=== PATIENT | female | born 2000 | race Asian ===

== ENCOUNTER 2021-06-18 21:50 | Emergency (ER) | payer BC ==
[~2021-06-18] VITALS: Ht 162.5 cm; Wt 72.5 kg
--- NOTE | 2021-06-18 22:13 | ED General ---
General Chief Complaint: Abdominal/GI Problems Stated Complaint: THROWING UP BLOOD Source of Information: Patient Exam Limitations: No Limitations History of Present Illness Date Seen by Provider: Jun 18, 2021 Time Seen by Provider: 21:57 Initial Comments 20-year-old female with no significant past medical history coming in after she coughed up blood. Occurred earlier today around 4 PM and she presented to an urgent care. Reportedly had normal labs and a chest x-ray. Was told if this happen again she should come to the ER. She said prior to the incident she was eating something and pretzels, and she was worried one of them could have got stuck in her esophagus, but she says it did not really hurt. She had another episode around 9:30 PM tonight so that is why she presented to the ER. This is never happened before. Denies any vomiti ng, diarrhea, bloody stools, chest pain, current shortness of breath, weakness, numbness, abdominal pain, or any other concerns. LMP was 1 week ago. She does take control. Denies any prior history of DVT or PE, recent surgery, lower leg pain or swelling. She had normal colored stool today without any blood in it. She is never had any GI bleed issues before. Allergies and Home Medications Allergies Coded Allergies: No Known Drug Allergies (Unverified , 06/18/21) Patient Home Medication List Home Medication List Reviewed: Yes Pantoprazole Sodium (Protonix) 20 Mg Tablet.dr, 20 MG PO DAILY Prescribed by: HERIBERTO IGLESIAS on 06/18/21 1075 Review of Systems Review of Systems Constitutional: No chills EENTM: No blurred vision Respiratory: No cough, No short of breath Cardiovascular: No chest pain Gastrointestinal: No abdominal pain Genitourinary: no symptoms reported Musculoskeletal: no symptoms reported Skin: no symptoms reported Psychiatric/Neurological: No Symptoms Reported Hematologic/Lymphatic: No Symptoms Reported Immunological/Allergic: no symptoms reported All Other Systems Reviewed Negative Unless Noted: Yes Past Ngfddlm-Knufdc-Yofhxz Hx Patient Social History Tobacco Use?: No Substance use?: No Alcohol Use?: No Past Medical History Surgeries: No Physical Exam Vital Signs Vital Signs - First Documented 06/18/21 22:05 Temp 36.7 Pulse 73 Resp 16 B/P (MAP) 130/85 (100) Pulse Ox 98 Capillary Refill : Height, Weight, BMI Height: '" Weight: lbs. oz. kg; BMI Method: General Appearance: No Apparent Distress, WD/WN Eyes: Bilateral Eye Normal Inspection HEENT: PERRL/EOMI, Normal ENT Inspection, Pharynx Normal Neck: Full Range of Motion, Normal Inspection, Non Tender, Supple Respiratory: Chest Non Tender, Lungs Clear, Normal Breath Sounds, No Accessory Muscle Use, No Respiratory Distress Cardiovascular: Regular Rate, Rhythm, No Edema, Normal Peripheral Pulses Gastrointestinal: Normal Bowel Sounds, Non Tender, Soft; No Distended, No Guarding Back: Normal Inspection, No CVA Tenderness, No Vertebral Tenderness Extremity: Normal Capillary Refill, Normal Inspection, Normal Range of Motion, Non Tender, No Calf Tenderness, No Pedal Edema Neurologic/Psychiatric: Alert, No Motor/Sensory Deficits, Normal Mood/Affect Skin: Normal Color, Warm/Dry Lymphatic: No Adenopathy Progress/Results/Core Measures Suspected Sepsis SIRS Temperature: Pulse: Respiratory Rate: Laboratory Tests 06/18/21 22:20: White Blood Count 5.8 Blood Pressure / Mean: Laboratory Tests 06/18/21 22:20: Creatinine 0.77, INR Comment 1.0, Platelet Count 271, Total Bilirubin 0.4 Results/Orders Lab Results Laboratory Tests Test 06/18/21 22:20 Range/Units White Blood Count 5.8 4.3-11.0 10^3/uL Red Blood Count 4.76 3.80-5.11 10^6/uL Hemoglobin 12.7 11.5-16.0 g/dL Hematocrit 39 35-52 % Mean Corpuscular Volume 82 80-99 fL Mean Corpuscular Hemoglobin 27 25-34 pg Mean Corpuscular Hemoglobin Concent 33 32-36 g/dL Red Cell Distribution Width 13.6 10.0-14.5 % Platelet Count 271 130-400 10^3/uL Mean Platelet Volume 12.4 H 9.0-12.2 fL Immature Granulocyte % (Auto) 0 % Neutrophils (%) (Auto) 48 42-75 % Lymphocytes (%) (Auto) 42 12-44 % Monocytes (%) (Auto) 7 0-12 % Eosinophils (%) (Auto) 2 0-10 % Basophils (%) (Auto) 1 0-10 % Neutrophils # (Auto) 2.8 1.8-7.8 10^3/uL Lymphocytes # (Auto) 2.4 1.0-4.0 10^3/uL Monocytes # (Auto) 0.4 0.0-1.0 10^3/uL Eosinophils # (Auto) 0.1 0.0-0.3 10^3/uL Basophils # (Auto) 0.0 0.0-0.1 10^3/uL Immature Granulocyte # (Auto) 0.0 0.0-0.1 10^3/uL Prothrombin Time 13.2 12.2-14.7 SEC INR Comment 1.0 0.8-1.4 Activated Partial Thromboplast Time 31 24-35 SEC D-Dimer < 0.27 0.00-0.49 UG/ML Sodium Level 140 135-145 MMOL/L Potassium Level 3.5 L 3.6-5.0 MMOL/L Chloride Level 107 98-107 MMOL/L Carbon Dioxide Level 22 21-32 MMOL/L Anion Gap 11 5-14 MMOL/L Blood Urea Nitrogen 14 7-18 MG/DL Creatinine 0.77 0.60-1.30 MG/DL Estimat Glomerular Filtration Rate 112 BUN/Creatinine Ratio 18 Glucose Level 117 H 70-105 MG/DL Calcium Level 9.3 8.5-10.1 MG/DL Corrected Calcium 9.0 8.5-10.1 MG/DL Total Bilirubin 0.4 0.1-1.0 MG/DL Aspartate Amino Transf (AST/SGOT) 17 5-34 U/L Alanine Aminotransferase (ALT/SGPT) 15 0-55 U/L Alkaline Phosphatase 67 40-136 U/L Total Protein 7.8 6.4-8.2 GM/DL Albumin 4.4 3.2-4.5 GM/DL My Orders Orders - HERIBERTO IGLESIAS MD Cbc With Automated Diff (06/18/21 22:10) Comprehensive Metabolic Panel (06/18/21 22:10) Fibrin Degradation Products (06/18/21 22:10) Protime With Inr (06/18/21 22:10) Partial Thromboplastin Time (06/18/21 22:10) Chest 1 View, Ap/Pa Only (06/18/21 22:10) Pantoprazole Injection (Protonix Injecti (06/18/21 22:15) Medications Given in ED Current Medications Medications Dose Ordered Sig/Fatimah Route Start Time Stop Time Status Last Admin Dose Admin Pantoprazole 40 mg ONCE ONCE IV 06/18/21 22:15 06/18/21 22:16 DC 06/18/21 22:32 40 MG Vital Signs/I&O 06/18/21 22:05 Temp 36.7 Pulse 73 Resp 16 B/P (MAP) 130/85 (100) Pulse Ox 98 Capillary Refill : Progress Note : Progress Note 20-year-old female with above history coming in due to either hemoptysis versus hematemesis. It was a very small volume and she showed me the picture of it. Potential for a pretzel got stuck in her esophagus earlier causing the issue. She is not having any pain at this time and vitals are normal. Basic labs obtained including normal hemoglobin, normal platelets, normal coagulation studi es including negative D-dimer. Chest x-ray clear with no obvious cause of hemoptysis. She is low risk for PE and with a negative dimer, further work-up will not be needed at this time. Given Protonix for potential esophagitis. I will send her a prescription for the next couple weeks. I told her I want her to watch closely, and if she has increasing bleeding, shortness of breath, or any other concerns she needs to come back to the ER for reevaluation for potential scope versus CT scan. She was then discharged home in stable condition with strict return precautions. Diagnostic Imaging Diagonstic Imaging: Xray (chest) Comments [facility] [place], [place] NAME: ELIZA BARBOUR [facility] REC#: [id number] PT STATUS: REG ER : 2000 PHYSICIAN: HERIBERTO IGLESIAS MD ADMIT DATE: 06/18/21/ER Signed Date of Exam:06/18/21 CHEST 1 VIEW, AP/PA ONLY INDICATION: Hemoptysis. COMPARISON: None available. FINDINGS: The lungs appear clear without focal infiltrate or consolidation. There are no findings of an effusion. There is no evidence of a pneumothorax. Heart size and mediastinal contours appear appropriate. Pulmonary vascularity appears within normal limits. There is no acute or suspicious osseous abnormality demonstrated. IMPRESSION: No radiographic evidence of an acute cardiopulmonary process. Dictated by: Dictated on workstation # [id number] Dict: 06/18/212229 Trans: 06/18/212229 [facility] [id number] Interpreted by: SPENCER FRANCE MD Electronically signed by: SPENCER FRANCE MD 06/18/212229 Departure Impression Primary Impression: Hematemesis Qualified Codes: K92.0 - Hematemesis Disposition: HOME, SELF-CARE Condition: Stable Departure-Patient Inst. Decision time for Depature: 23:08 Referrals: NO,LOCAL PHYSICIAN (PCP/Family) Primary Care Physician Patient Instructions: Gastrointestinal Bleeding Add. Discharge Instructions: I would expect these episodes to be less and less with less bleeding each time. If this continues several days from now I definitely want you to be reevaluated again. If the bleeding increases I also want you to be reevaluated. I would avoid ibuprofen, naproxen, aspirin for the next couple weeks. Tylenol is safe if you are having pain. I sent in a medicine to help with potential esophageal issues to your pharmacy Scripts Pantoprazole Sodium (Protonix) 20 Mg Tablet.dr 20 MG PO DAILY for 14 Days, #14 TAB Prov: HERIBERTO IGLESIAS MD 06/18/21 Work/School Note: School/Childcare Release, Date Seen in the Emergency Department: Jun 18, 2021 Time Dismissed from Emergency Department: 23:10 Return to School: Jun 20, 2021 Restrictions: No Restrictions Work Release Form Date Seen in the Emergency Department: Jun 18, 2021 Return to Work: Jun 20, 2021 Restrictions: No Restrictions HERIBERTO IGLESIAS MD Jun 18, 2021 22:13
[2021-06-18] MEDS ORDERED: PANTOPRAZOLE 40 MG (PROTONIX) VIAL IV ONE (22:15)
[2021-06-18 22:29] LABS: BASOPHILS % (AUTO) 1 % (0-10); EOSINOPHILS # (AUTO) 0.1 10^3/uL (0.0-0.3); EOSINOPHILS % (AUTO) 2 % (0-10); HEMATOCRIT 39 % (35-52); HEMOGLOBIN 12.7 g/dL (11.5-16.0); LYMPHOCYTES # (AUTO) 2.4 10^3/uL (1.0-4.0); LYMPHOCYTES % (AUTO) 42 % (12-44); MEAN CORPUSCULAR HEMOGLOBIN 27 pg (25-34); MEAN CORPUSCULAR HGB CONC 33 g/dL (32-36); MEAN CORPUSCULAR VOLUME 82 fL (80-99); MEAN PLATELET VOLUME 12.4 fL (9.0-12.2); MONOCYTES # (AUTO) 0.4 10^3/uL (0.0-1.0); MONOCYTES % (AUTO) 7 % (0-12); NEUTROPHILS # (AUTO) 2.8 10^3/uL (1.8-7.8); NEUTROPHILS % (AUTO) 48 % (42-75); PLATELET COUNT 271 10^3/uL (130-400); WHITE BLOOD COUNT 5.8 10^3/uL (4.3-11.0)
--- NOTE | 2021-06-18 22:32 | Diagnostic Imaging Report ---
INDICATION: Hemoptysis. COMPARISON: None available. FINDINGS: The lungs appear clear without focal infiltrate or consolidation. There are no findings of an effusion. There is no evidence of a pneumothorax. Heart size and mediastinal contours appear appropriate. Pulmonary vascularity appears within normal limits. There is no acute or suspicious osseous abnormality demonstrated. IMPRESSION: No radiographic evidence of an acute cardiopulmonary process. Dictated by: Dictated on workstation # [id number]
[2021-06-18 22:37] LABS: ALBUMIN 4.4 GM/DL (3.2-4.5); POTASSIUM 3.5 MMOL/L (3.6-5.0)
[2021-06-18 22:38] LABS: CALCIUM 9.3 MG/DL (8.5-10.1)
[2021-06-18 22:39] LABS: TOTAL PROTEIN 7.8 GM/DL (6.4-8.2)
[2021-06-18 22:41] LABS: BILIRUBIN,TOTAL 0.4 MG/DL (0.1-1.0)
[2021-06-18 22:43] LABS: CREATININE SERUM 0.77 MG/DL (0.60-1.30)
[2021-06-18 22:47] LABS: FIBRIN DEGRADATION PRODUCTS < 0.27 UG/ML (0.00-0.49); PARTIAL THROMBOPLASTIN TIME 31 SEC (24-35); PROTHROMBIN TIME PATIENT 13.2 SEC (12.2-14.7)
[2021-06-18] MEDS ORDERED: PANT20TA2 PO (23:09)
[2021-06-18 23:37] VITALS: BP 131/91
[2021-06-19] MEDS ORDERED: FERR-84 PO (14:33)
[2021-06-19] MEDS ORDERED: CETI10TA17 PO (14:33)
[2021-06-19] MEDS ORDERED: MULT-1136 PO (14:33)
== END 2021-06-18 23:37 | disposition home or self-care (01) ==
LOC: ER 21:56
DX: K92.0 Hematemesis (principal)
CPT/HCPCS: 36415; 71045; 80053; 85025; 85379; 85610; 85730

== ENCOUNTER 2021-06-19 00:19 | Observation (INO) | payer BC ==
[~2021-06-19] VITALS: Ht 162.5 cm; Wt 71.3 kg
[2021-06-19] VITALS (7 sets, daily range): BP systolic 110–139; BP diastolic 68–86
[~2021-06-19 00:19] MED LIST: PANT20TA2 PO
[2021-06-19] MEDS ORDERED: TRANEXAMIC ACID 100 MG/ML 10 ML INJECTION IV STA (00:27)
--- NOTE | 2021-06-19 00:32 | ED Respiratory ---
General Chief Complaint: Abdominal/GI Problems Stated Complaint: COUGHING UP BLOOD STILL Source: patient Exam Limitations: no limitations History of Present Illness Date Seen by Provider: Jun 19, 2021 Time Seen by Provider: 00:25 Initial Comments 20-year-old female with no significant past medical history seen by me earlier in the night due to an episode of hemoptysis versus hematemesis x2 prior to arrival. She had normal labs including normal hemoglobin, normal coagulation studies, negative D-dimer. She was watched for a couple hours and had no episodes and continue to have normal vitals that she was discharged home. Had another episode of significant hemoptysis just after leaving for which she came back. This is never happened prior to today. Boyfriend notes that she has seemed more short of breath today. She is on anticoagulation. Allergies and Home Medications Allergies Coded Allergies: No Known Drug Allergies (Unverified , 06/18/21) Patient Home Medication List Home Medication List Reviewed: Yes Pantoprazole Sodium (Protonix) 20 Mg Tablet.dr, 20 MG PO DAILY Prescribed by: HERIBERTO IGLESIAS on 06/18/21 2358 Review of Systems Review of Systems Constitutional: No chills EENTM: No blurred vision Respiratory: cough, short of breath Cardiovascular: No chest pain Gastrointestinal: No abdominal pain, No nausea, No vomiting Genitourinary: no symptoms reported Musculoskeletal: no symptoms reported Skin: no symptoms reported Psychiatric/Neurological: No Symptoms Reported Hematologic/Lymphatic: No Symptoms Reported Immunological/Allergic: no symptoms reported All Other Systems Reviewed Negative Unless Noted: Yes Past Yyponla-Oskezq-Iuwapu Hx Patient Social History Tobacco Use?: No Substance use?: No Alcohol Use?: No Immunizations Up To Date First/Initial COVID19 Vaccinat: 09/15 Second COVID19 Vaccination Ronald: 10/16 Past Medical History Surgeries: No Physical Exam Vital Signs - First Documented 06/19/21 00:26 Temp 36.8 Pulse 72 Resp 16 B/P (MAP) 139/73 (95) Pulse Ox 98 O2 Delivery Room Air Capillary Refill : Height: '" Weight: lbs. oz. kg; 27.00 BMI Method: General Appearance: WD/WN, no apparent distress Eyes: Bilateral Eye Normal Inspection HEENT: PERRL/EOMI, normal ENT inspection, pharynx normal Neck: non-tender, full range of motion, supple, normal inspection Respiratory: chest non-tender, lungs clear, normal breath sounds, no r espiratory distress, no accessory muscle use Cardiovascular: regular rate, rhythm, no edema, no murmur Gastrointestinal: normal bowel sounds, non tender, soft; No distended, No guarding Extremities: normal range of motion, non-tender, normal inspection, no pedal edema, no calf tenderness, normal capillary refill Neurologic/Psychiatric: no motor/sensory deficits, alert, normal mood/affect Skin: normal color, warm/dry Lymphatic: no adenopathy Progress/Results/Core Measures Suspected Sepsis SIRS Temperature: Pulse: Respiratory Rate: Blood Pressure / Mean: Results/Orders My Orders Orders - HERIBERTO IGLESIAS MD Ed Iv/Invasive Line Start (06/19/21 00:27) Urine Bedside (06/19/21 00:27) Ekg Tracing (06/19/21:) Ct Angio Chest W (06/19/21 00:) Tranexamic Acid Injection (Cyklokapron I (06/19/21 00:) Svn Small Volume Nebulizer (06/19/21 00:27) Vital Signs/I&O 06/19/21 06/19/21 00:26 00:26 Temp 36.8 Pulse 72 Resp 16 B/P (MAP) 139/73 (95) Pulse Ox 98 O2 Delivery Room Air Room Air Capillary Refill : Progress Note : Progress Note 20-year-old female with above history coming in due to what I believed to be hemoptysis 20 times in the past 6 hours or so. Initially discharged from the emergency department but then came back after another episode. This time we did inhaled TXA via nebulizer and she has not had another episode for at least another hour. Vitals remained stable and she appears well in between these episodes. An IV was placed and will start her on maintenance IV fluids. In the morning we will consult with the general surgery team to be evaluated for bronchoscopy versus upper GI scope depending on her clinical picture at the time. Discussed the case with Dr. Andrade who agrees to admit the patient under observation status. Departure Impression Primary Impression: Hemoptysis Disposition: ADMITTED INPATIENT Condition: Stable Admissions Decision to Admit Reason: Admit from ER (General) Decision to Admit/Date: Jun 19, 2021 Time/Decision to Admit Time: 02:15 Departure-Patient Inst. Referrals: NO,LOCAL PHYSICIAN (PCP/Family) Primary Care Physician HERIBERTO IGLESIAS MD Jun 19, 2021 00:32
[2021-06-19] MEDS ORDERED: RT-ALBUTEROL SULF 2.5 MG/3 ML PRE-MIX VIAL INH PRN (03:00)
[2021-06-19] MEDS: LACTATED RINGERS 1,000 ML IV SCH ×2 (03:48→14:36)
--- NOTE | 2021-06-19 05:49 | Consultation - Surgery ---
BAR WILKINS 06/19/21 0549: History of Present Illness History of Present Illness Patient Consulted On(cecilia/time) 06/19/21 05:48 Date Seen by Provider: Jun 19, 2021 Time Seen by Provider: 05:50 Reason for Visit: Coughing up blood History of Present Illness 20 yo female with hx of anemia presents to [place] ER yesterday evening after coughing up blood. Symptoms started after eating pretzel crisps at home. The pt began coughing for a minute or two before coughing up blood. She reported feeling a pressure in her chest while this happened. Pt went to urgent care and showed them a picture of the blood. UC did a CXR and blood work. Both came back normal, and she was sent home with instructions to go to the ER if symptoms persisted. Pt ate soft foods at home (mashed potatoes, soup, and a couple raspberries). Right after eating, she began to cough up blood again. Pt then went to [place] ER. The ER did a CXR and blood work that came back normal. She was discharged home. Her boyfriend reported she was breathing heavily after D/C. Pt returned to the ER around midnight after she coughed up blood while drinking water. She was given TXA and was admitted. The pt has not had hemoptysis since. Pt denies CP, SOB, and fever at this time. Pt reports no hx of similar sx. She does take an iron supplement for a hx of anemia. Allergies and Home Medications Allergies Coded Allergies: No Known Drug Allergies (Unverified , 06/18/21) Patient Home Medication List Cetirizine HCl (Cetirizine HCl) 10 Mg Tablet, 10 MG PO DAILY, (Reported) Entered as Reported by: FISH VEGA on 06/19/211432 Last Action: Reviewed Ferrous Sulfate (Iron) 325 Mg Tablet, 325 MG PO DAILY, (Reported) Entered as Reported by: FISH VEGA on 06/19/211432 Last Action: Reviewed Multivitamin (Multivitamin) 1 Each Tablet, 1 EACH PO DAILY, (Reported) Entered as Reported by: FISH VEGA on 06/19/211432 Last Action: Reviewed Discontinued Medications Pantoprazole Sodium (Protonix) 20 Mg Tablet.dr, 20 MG PO DAILY Discontinued Reason: No Longer Taking Prescribed by: HERIBERTO IGLESIAS on 06/18/212308 Last Action: Discontinued Past Cmlnihz-Ufvknx-Iuxukw Hx Patient Social History Alcohol Use?: No Have you traveled recently?: No Immunizations Up To Date Date of Influenza Vaccine: Jan 28, 2021 Surgeries History of Surgeries: No Review of Systems-General Constitutional: chills (after coughing episode); No fever EENTM: No ear pain, No blurred vision Respiratory: cough, hemoptysis Cardiovascular: No chest pain, No palpitations Gastrointestinal: No abdominal pain, No constipation, No diarrhea, No nausea, N o vomiting Genitourinary: No dysuria, No frequency Musculoskeletal: No muscle pain, No muscle cramps Skin: No lesions, No rash; other (bruise R medial ankle) Physical Exam-General Problems Physical Exam Vital Signs Vital Signs - First Documented 06/19/21 06/19/21 00:26 02:50 Temp 36.8 Pulse 72 Resp 16 B/P (MAP) 139/73 (95) Pulse Ox 98 O2 Delivery Room Air FiO2 21 Capillary Refill : General Appearance: WD/WN, no apparent distress Eyes: Bilateral Eye Normal Inspection HEENT: PERRL/EOMI Neck: supple, normal inspection Respiratory: lungs clear, normal breath sounds, no accessory muscle use Cardiovascular: regular rate, rhythm, no murmur Peripheral Pulses: 2+ Radial Pulses (R), 2+ Radial Pulses (L) Gastrointestinal: non tender, soft, no organomegaly Extremities: non-tender, normal inspection, no pedal edema Neurologic/Psychiatric: alert, normal mood/affect, oriented x 3 Skin: normal color, warm/dry, tattoos/piercings Assessment/Plan Assessment/Plan Assessment/Plan Hemoptysis Hx of anemia Bronchoscopy today EGD if no source found NPO IV fluids Monitor labs and vitals RAMSES MCDOWELL DO 06/19/211915: History of Present Illness History of Present Illness History of Present Illness Consult requested by Dr. Leigh due to hemoptysis/hematemesis. Patient is a 20-year-old female who yesterday evening was eating pretzel crests and she started getting a funny tickle in her throat. She had to start coughing and noticed that she started having blood,. She was having a pressure type feeling in her chest. She went to urgent care and had not have any further episodes. Patient was sent home. Patient went home and began having more bright red blood come out with coughing/having emesis. Patient was evaluated in the emergency department was doing okay. She was soon discharged home. Patient started having some difficulty breathing and started having further blood come up when she was drinking some water. She returned back to the emergency department for further evaluation and subsequently admitted. Patient received TXA in the emergency department. She had a CTA of the chest which demonstrated no pulmonary embolism. No active bleed. No cardiopulmonary process. Some diffuse areas of atelectasis. Patient since being admitted has not had any further episodes. She has no other complaints at this time. She is currently n.p.o. She denies any nausea vomiting fever sweats chills shortness of breath or chest pain at this time. Allergies and Home Medications Allergies Coded Allergies: No Known Drug Allergies (Unverified , 06/18/21) Patient Home Medication List Home Medication List Reviewed: Yes Cetirizine HCl (Cetirizine HCl) 10 Mg Tablet, 10 MG PO DAILY, (Reported) Entered as Reported by: FISH VEGA on 06/19/21 1433 Last Action: Reviewed Ferrous Sulfate (Iron) 325 Mg Tablet, 325 MG PO DAILY, (Reported) Entered as Reported by: FISH VEGA on 06/19/21 143 Last Action: Reviewed Multivitamin (Multivitamin) 1 Each Tablet, 1 EACH PO DAILY, (Reported) Entered as Reported by: FISH VEGA on 06/19/21 143 Last Action: Reviewed Discontinued Medications Pantoprazole Sodium (Protonix) 20 Mg Tablet.dr, 20 MG PO DAILY Discontinued Reason: No Longer Taking Prescribed by: HERIBERTO IGLESIAS on 06/18/21 9743 Last Action: Discontinued Past Onhckih-Qufgns-Xdunrs Hx Reviewed Nursing Assessment Reviewed/Agree w Nursing PMH: Yes Family Medical History Significant Family History: No Pertinent Family Hx Review of Systems-General Constitutional: No chills (after coughing episode), No fever EENTM: No ear pain, No blurred vision Respiratory: cough, hemoptysis Cardiovascular: No chest pain, No palpitations Gastrointestinal: No abdominal pain, No constipation, No diarrhea, No nausea; vomiting Genitourinary: No dysuria, No frequency Musculoskeletal: No muscle pain, No muscle cramps Skin: No lesions, No rash Psychiatric/Neurological: Denies Anxiety, Denies Depressed, Denies Emotional Problems All Other Systems Reviewed Negative Unless Noted: Yes (Negative excepted noted.) Physical Exam-General Problems Physical Exam General Appearance: WD/WN, no apparent distress HEENT: PERRL/EOMI, normal ENT inspection Neck: non-tender, supple, normal inspection Respiratory: chest non-tender, no respiratory distress, no accessory muscle use Cardiovascular: regular rate, rhythm, no JVD Gastrointestinal: non tender, soft, no organomegaly Rectal: deferred Back: no CVA tenderness, no vertebral tenderness Extremities: non-tender, normal inspection, no pedal edema Neurologic/Psychiatric: braker passenger train II-XII nml as tested, alert, normal mood/affect, oriented x 3 Skin: normal color, warm/dry, tattoos/piercings Lymphatic: no adenopathy Assessment/Plan Assessment/Plan Assessment/Plan Hematemesis/hemoptysis History of anemia I feel patient most likely has esophageal trauma secondary to pretzel crisps. Her hemoglobin stable would recheck hemoglobin later today. We will start her on clear liquids. If continues to have hematemesis or hemoptysis would need EGD or bronchoscopy for further evaluation. I feel that this is most likely esophageal therefore would recommend a EGD. If continued to have issues would consider Bronchoscopy Supervisory-Addendum Brief Verification & Attestation Participated in pt care: history, MDM, physical Personally performed: exam, history, MDM, supervision of care Care discussed with: Medical Student Procedures: n/a Results interpretation: Verified all documentation Verification and Attestation of Medical Student E/M Service A medical student performed and documented this service in my presence. I reviewed and verified all information documented by the medical student and made modifications to such information, when appropriate. I personally performed the physical exam and medical decision making. Ramses Mcdowell, Jun 19, 2021,19:25 BAR WILKINS Jun 19, 2021 05:49 RAMSES MCDOWELL DO Jun 19, 2021 19:16
[2021-06-19 06:26] LABS: BASOPHILS % (AUTO) 1 % (0-10); EOSINOPHILS # (AUTO) 0.1 10^3/uL (0.0-0.3); EOSINOPHILS % (AUTO) 2 % (0-10); HEMATOCRIT 35 % (35-52); HEMOGLOBIN 11.3 g/dL (11.5-16.0); LYMPHOCYTES # (AUTO) 2.2 10^3/uL (1.0-4.0); LYMPHOCYTES % (AUTO) 36 % (12-44); MEAN CORPUSCULAR HEMOGLOBIN 27 pg (25-34); MEAN CORPUSCULAR HGB CONC 33 g/dL (32-36); MEAN CORPUSCULAR VOLUME 82 fL (80-99); MEAN PLATELET VOLUME 12.7 fL (9.0-12.2); MONOCYTES # (AUTO) 0.5 10^3/uL (0.0-1.0); MONOCYTES % (AUTO) 8 % (0-12); NEUTROPHILS # (AUTO) 3.4 10^3/uL (1.8-7.8); NEUTROPHILS % (AUTO) 54 % (42-75); PLATELET COUNT 208 10^3/uL (130-400); WHITE BLOOD COUNT 6.2 10^3/uL (4.3-11.0)
--- NOTE | 2021-06-19 06:45 | Diagnostic Imaging Report ---
PROCEDURE: CT angiography of the chest with contrast. TECHNIQUE: Multiple contiguous axial images were obtained through the chest after uneventful bolus administration of intravenous contrast. 3D reconstructed CTA MIP acquisitions were also performed. Auto Exposure Controls were utilized during the CT exam to meet ALARA standards for radiation dose reduction. INDICATION: Hemoptysis EXAMINATION: CTA of the chest from 06/19/2021 FINDINGS: The thoracic aorta appears unremarkable. There are no central or proximal segmental pulmonary emboli with the peripheral vessels poorly opacified and poorly evaluated. There are scattered areas of atelectasis within the lungs with no focal consolidations or suspicious masses. No pneumothorax or pericardial nor pleural effusions. Visualized upper abdomen demonstrates diffuse fatty infiltration throughout the visualized liver. There is no acute process in the visualized upper abdomen. There is no acute osseous abnormality. IMPRESSION: 1. No central or proximal segmental pulmonary emboli with the peripheral vessels poorly opacified. Other incidental findings as discussed above. Pertinent findings agree with the preliminary report. Dictated by: Dictated on workstation # [id number]
--- NOTE | 2021-06-19 12:09 | Pulmonary Consultation ---
History of Present Illness History of Present Illness Date Seen by Provider: Jun 19, 2021 Time Seen by Provider: 11:30 Date of Admission Reason for Visit: Coughing up blood Allergies and Home Medications Allergies Coded Allergies: No Known Drug Allergies (Unverified , 06/18/21) Home Medications Pantoprazole Sodium 20 Mg Tablet.dr, 20 MG PO DAILY Prescribed by: HERIBERTO IGLESIAS on 06/18/21 7943 Past Medical/Social/Family Hx Patient Social History Tobacco Use?: No Use of E-Cig and/or Vaping dev: No Substance use?: No Alcohol Use?: No Pt stated abuse/neglect: No Immunizations Up To Date Influenza Vaccine Up-to-Date: Yes; Up-to-Date First/Initial COVID19 Vaccinat: 09/15 Second COVID19 Vaccination Ronald: 10/16 Current Status status: No Advance Directives: No Communicates: Verbally Primary Language: Chinese Preferred Spoken Language: Chinese Is interpretation needed?: No Sensory deficits: Vision impairment Review of Systems Constitutional: see HPI Sepsis Event Evaluation Height, Weight, BMI Height: '" Weight: lbs. oz. kg; 27.03 BMI Method: Exam Exam Patient acknowledged, consented, and participated in this virtual visit which was conducted using real time audio/video Vital Signs Date Time Temp Pulse Resp B/P (MAP) Pulse Ox O2 Delivery O2 Flow Rate FiO2 06/19/21 08:15 98 Room Air 06/19/21 08:00 Room Air 06/19/21 07:53 36.8 71 18 110/68 (82) 97 Room Air 06/19/21 03:49 36.5 77 16 125/71 (89) 97 Room Air 06/19/21 02:50 36.8 72 98 21 06/19/21 02:42 74 16 139/73 96 06/19/21 02:30 Room Air 06/19/21 02:30 36.4 73 16 138/86 (103) 98 Room Air 06/19/21 00:26 36.8 72 16 139/73 (95) 98 Room Air 06/19/21 00:26 Room Air I & O 06/19/21 07:00 Intake Total 100 ml Output Total 275 ml Balance -175 ml Height & Weight Height: '" Weight: lbs. oz. kg; 27.03 BMI Method: General Appearance: No Apparent Distress Peripheral Pulses: 2+ Radial Pulses (R), 2+ Radial Pulses (L) Gastrointestinal: non tender, soft, no organomegaly Results Lab Laboratory Tests 06/19/21 05:00 Assessment/Plan Assessment/Plan PMH No history of asthma, no history of frequent respiratory infections, no nasal polyps. Patient does have seasonal allergy and taking Zertek on everyday basis. Does have very occasional symptoms of GERD and takes Toms once a month period, next paragraph. Patient does not report any change in her health status recently, no cough, no fever, no weight loss, no respiratory infection. Patient has vaccination for COVID in October 1999. 20. Patient with h/o heavy menstrual bleeding on occasional iron supplements , and on control pilsl Patient working as a window and door installer and [employer], no exposure to fumes, gas or any other respiratory irritants. Family history is not available., patient is adop justin from [place] as a small child., grew up in the [facility]. HPI Patient presented to emergency room after eating pretzels and feeling something I"n her throat , which resulted in cough and following hemoptysis . She did not have significant chest pain or any other symptoms at that point. She was seen in emergent care and sent home. After recurrent event of hemoptysis she came to emergency room and had CT scan of the chest which did not show any pulmonary embolism. Patient described second episode of hemoptysis as substernal bubbling sensation when she was trying to cough. That started after she did eat soft food and finished eating without pain or choking. After CAT scan was negative, patient was discharged home. Now admitted with another episode of multiple hemoptysis. All three times she described blood as resh red blood without any clots. Reviewed CT scan; there is no parenchymal disease, no significant abnormalities consistent with AVM, no pulmonary embolism, no air in mediastinal compartments A/P 1. I do not suspect what this patient have any underlying lung condition or infection leading to hemoptysis . No suspicious for tuberculosis or fungal infection. Patient is on control pills -- doubt pulmonary endometriosis. PE was rulled out 2. Hemoptysis could be due to traumatic damage to lining of trachea with aspiration . There is no evidence of aspirated food on CT scan, p 3. Most likely there is a trauma to esophagus ( less likely esophageal tear ) PLAN Agree with bronchoscopy / EGD to assess source of bleeding. ( no indications for asp PNA now no abx needed ) Discussed with Doctor Reese. Will follow after bronchoscopy with additional recommendation if needed Discussed with patient, all questions answered. Thank you for opportunity to participate in this patient care . Please do not hesitate to call us if there is any questions or concerns. HERMAN HARRISON MD Jun 19, 2021 12:09
[2021-06-19] MEDS ORDERED: ACETAMINOPHEN 325 MG TABLET PO ONE (14:30)
[2021-06-19] MEDS ORDERED: FERR-84 PO (14:33)
[2021-06-19] MEDS ORDERED: MULT-1136 PO (14:33)
[2021-06-19] MEDS ORDERED: CETI10TA17 PO (14:33)
[2021-06-19] MEDS ORDERED: ACETAMINOPHEN 325 MG TABLET ONE (14:35)
[2021-06-19 15:06] LABS: BASOPHILS % (AUTO) 1 % (0-10); EOSINOPHILS # (AUTO) 0.1 10^3/uL (0.0-0.3); EOSINOPHILS % (AUTO) 2 % (0-10); HEMATOCRIT 38 % (35-52); HEMOGLOBIN 12.1 g/dL (11.5-16.0); LYMPHOCYTES # (AUTO) 2.1 10^3/uL (1.0-4.0); LYMPHOCYTES % (AUTO) 36 % (12-44); MEAN CORPUSCULAR HEMOGLOBIN 27 pg (25-34); MEAN CORPUSCULAR HGB CONC 32 g/dL (32-36); MEAN CORPUSCULAR VOLUME 83 fL (80-99); MEAN PLATELET VOLUME 12.3 fL (9.0-12.2); MONOCYTES # (AUTO) 0.5 10^3/uL (0.0-1.0); MONOCYTES % (AUTO) 8 % (0-12); NEUTROPHILS # (AUTO) 3.1 10^3/uL (1.8-7.8); NEUTROPHILS % (AUTO) 53 % (42-75); PLATELET COUNT 234 10^3/uL (130-400); WHITE BLOOD COUNT 5.8 10^3/uL (4.3-11.0)
[2021-06-19] MEDS ORDERED: polyethylene glycoL POWDER 17 GM (MIRALAX) PACK PO PRN (16:15)
[2021-06-19] MEDS ORDERED: ONDANSETRON 4 MG (ZOFRAN) ORAL DISSOLVE TAB PO PRN (16:15)
[2021-06-19] MEDS ORDERED: MELATONIN 3 MG TABLET PO PRN (16:15)
[2021-06-19] MEDS ORDERED: ANTACID SUSP 30 ML UDC (MYLANTA) PO PRN (16:15)
[2021-06-19] MEDS ORDERED: diphenhydrAMINE 25 MG TAB (BENADRYL) PO PRN (16:15)
[2021-06-19] MEDS: ONDANSETRON 4 MG/2 ML (SDV) Z0FRAN IV PRN ×2 (16:25→22:04)
--- NOTE | 2021-06-19 18:28 | History & Physical-Hospitalist ---
History of Present Illness HPI/Chief Complaint Alana Drake is a 20 year old female with PMH iron deficiency anemia, seasonal allergies, who presented after coughing up blood. She reports this started after eating some pretzels. She thinks they may have irritated her throat. She had three episodes in total. She was not sure if the blood was from her lungs or from her throat. She denies any throat or chest pain. She denies abdominal pain. She has not vomited. She denies any fevers or chills. She denies shortness of breath. She has no history of tuberculosis. She has no history of incarceration or travel outside the country. She is a student at the [employer] She does not smoke, drink, or use illicit drugs. Source: patient Exam Limitations: no limitations Date Seen 06/19/21 Time Seen by a Provider: 09:45 Attending Physician Nikhil Andrade MD PCP No,Local Physician Referring Physician Date of Admission Jun 19, 2021 at 02:11 Home Medications & Allergies Home Medications Reviewed patient Home Medication Reconciliation performed by pharmacy medication reconciliations semiconductor equipment technician and/or nursing. Patients Allergies have been reviewed. Allergies Allergies Coded Allergies No Known Drug Allergies (Unverified06/18/21) Past Movpxrh-Nmapou-Mqgdfg Hx Patient Social History Tobacco Use?: No Use of E-Cig and/or Vaping dev: No Substance use?: No Alcohol Use?: No Pt feels they are or have been: No Immunizations Up To Date Date of Influenza Vaccine: Jan 28, 2021 First/Initial COVID19 Vaccinat: 09/15 Second COVID19 Vaccination Ronald: 10/16 Current Status status: No Advance Directives: No Communicates: Verbally Primary Language: [place] Preferred Spoken Language: [place] Is interpretation needed?: No Sensory deficits: Vision impairment Family Medical History No Pertinent Family Hx Review of Systems Constitutional: no symptoms reported EENTM: no symptoms reported Respiratory: cough, hemoptysis Cardiovascular: no symptoms reported Gastrointestinal: nausea Genitourinary: no symptoms reported Musculoskeletal: no symptoms reported Skin: no symptoms reported Psychiatric/Neurological: No Symptoms Reported Physical Exam Physical Exam Vital Signs Vital Signs - First Documented 06/19/21 06/19/21 00:26 02:50 Temp 36.8 Pulse 72 Resp 16 B/P (MAP) 139/73 (95) Pulse Ox 98 O2 Delivery Room Air FiO2 21 Capillary Refill : Height, Weight, BMI Height: '" Weight: lbs. oz. kg; 27.03 BMI Method: General Appearance: No Apparent Distress, WD/WN HEENT: PERRL/EOMI, Pharynx Normal Neck: Normal Inspection, Supple Respiratory: Lungs Clear, Normal Breath Sounds, No Respiratory Distress Cardiovascular: Regular Rate, Rhythm, No Edema, No Murmur Gastrointestinal: Normal Bowel Sounds, Non Tender, Soft Extremity: Normal Inspection, Non Tender, No Pedal Edema Neurologic/Psychiatric: Alert, Oriented x3, No Motor/Sensory Deficits, Normal Mood/Affect Skin: Normal Color, Warm/Dry Results Results/Procedures Labs Laboratory Tests 06/19/21 05:00 06/19/21 15:00 Patient resulted labs reviewed. Imaging: Reviewed Imaging Report Assessment/Plan Admission Diagnosis Bleeding Admission Status: Observation Assessment and Plan Bleeding Hematemesis vs Hemoptysis Likely upper GI bleeding due to irritation CT with no PE or other lesion Hgb 11 Pulmonology consulted Surgery consulted EGD tomorrow NPO at midnight IV fluids IV PPI BID Diagnosis/Problems Diagnosis/Problems (1) Bleeding Status: Acute (2) Hematemesis Status: Acute Qualifiers: Nausea presence: with nausea Qualified Codes: K92.0 - Hematemesis BENJI MICHELLE MD Jun 19, 2021 18:28
[2021-06-19] MEDS ORDERED: PANTOPRAZOLE 40 MG (PROTONIX) VIAL IV NR (19:00)
[2021-06-19] MEDS: ACETAMINOPHEN 325 MG TABLET PO PRN (19:41)
[2021-06-19] MEDS: PANTOPRAZOLE 40 MG (PROTONIX) VIAL IV SCH (21:07)
[2021-06-20] VITALS (8 sets, daily range): BP systolic 106–121; BP diastolic 56–77
[2021-06-20] MEDS: LACTATED RINGERS 1,000 ML IV SCH ×3 (00:56→13:38)
--- NOTE | 2021-06-20 07:15 | Progress Note - Surgery ---
BAR WILKINS 06/20/21 0715: Subjective Date Seen by a Provider: Jun 20, 2021 Time Seen by a Provider: 06:55 Subjective/Events-last exam Pt feeling tired this morning. Reports no abdominal pain, but felt "acidic and gassy" yesterday with discomfort by her sternum. Vomited once yesterday afternoon after starting clears; she reported small clots in it. Pt vomited twice b/w 9-10pm last night and took pictures. The first emesis was clear, the second had bright red blood in it. Pt had a bm yesterday that was solid without blood. Urine output has been regular without blood. Pt NPO; has not eaten since before 7pm last night. She was given tylenol for a PEREZ yesterday afternoon and e vening, but it has resolved this morning. Pt reports no CP, SOB, or pain currently. Review of Systems General: No Chills; Fatigue HEENT: Head Aches (yesterday; resolved this morning) Pulmonary: No Dyspnea; Cough (occasionally) Cardiovascular: No: Chest Pain, Palpitations Gastrointestinal: Nausea, Vomiting; No: Abdominal Pain Genitourinary: No Dysuria; Frequency (from IVFs) Musculoskeletal: foot pain (R medial ankle bruised) Neurological: No: Weakness, Change in speech Focused Exam Respiratory: Lungs Clear, Normal Breath Sounds, No Respiratory Distress Cardiovascular: Regular Rate, Rhythm, No Murmur Peripheral Pulses: 2+ Radial Pulses (R), 2+ Radial Pulses (L) Skin: normal color, warm/dry Objective Exam Vital Signs Date Time Temp Pulse Resp B/P (MAP) Pulse Ox O2 Delivery O2 Flow Rate FiO2 06/20/21 03:44 36.8 64 16 111/66 (81) 98 Room Air 06/20/21 00:09 37.1 70 16 113/56 (75) 98 Room Air 06/19/21 19:46 36.0 73 18 121/70 (87) 98 Room Air 06/19/21 19:35 Room Air 06/19/21 15:52 36.0 86 20 132/70 (90) 99 Room Air 06/19/21 12:19 36.8 64 18 114/70 (85) 97 Room Air 06/19/21 08:15 98 Room Air 06/19/21 08:00 Room Air 06/19/21 07:53 36.8 71 18 110/68 (82) 97 Room Air I & O 06/20/21 07:00 Intake Total 1750 ml Output Total 50 ml Balance 1700 ml Capillary Refill : General Appearance: No Apparent Distress, WD/WN HEENT: PERRL/EOMI Neck: Normal Inspection, Supple Respiratory: Lungs Clear, Normal Breath Sounds, No Respiratory Distress Cardiovascular: Regular Rate, Rhythm, No Edema, No Murmur Peripheral Pulses: 2+ Radial Pulses (R), 2+ Radial Pulses (L) Gastrointestinal: non tender, soft, no organomegaly Extremity: Normal Inspection, Non Tender, No Pedal Edema Neurologic/Psychiatric: Alert, Oriented x3, Normal Mood/Affect Skin: Normal Color, Warm/Dry, Ecchymosis (R medial ankle) Results Lab Laboratory Tests 06/19/21 15:00: White Blood Count 5.8, Red Blood Count 4.55, Hemoglobin 12.1, Hematocrit 38, Mean Corpuscular Volume 83, Mean Corpuscular Hemoglobin 27, Mean Corpuscular Hem oglobin Concent 32, Red Cell Distribution Width 13.8, Platelet Count 234, Mean Platelet Volume 12.3H, Immature Granulocyte % (Auto) 0, Neutrophils (%) (Auto) 53, Lymphocytes (%) (Auto) 36, Monocytes (%) (Auto) 8, Eosinophils (%) (Auto) 2, Basophils (%) (Auto) 1, Neutrophils # (Auto) 3.1, Lymphocytes # (Auto) 2.1, Monocytes # (Auto) 0.5, Eosinophils # (Auto) 0.1, Basophils # (Auto) 0.0, Immature Granulocyte # (Auto) 0.0 06/19/21 19:47: Assessment/Plan Assessment/Plan Assessment/Plan Hematemesis/hemoptysis Hx of anemia NPO EGD today Bronchoscopy if no source found RAMSES GONSALEZ DO 06/20/21 1028: Subjective Subjective/Events-last exam No abdominal pain. Nausea and emesis last night after clears. Took red jello and had emesis soon after. Currently NPO. No emesis this morning. Denies n/v fever sweats chills shortness of breath or chest pain. Hgb was stable yesterday. Objective Exam General Appearance: No Apparent Distress, WD/WN HEENT: PERRL/EOMI, Normal ENT Inspection Neck: Normal Inspection, Supple Respiratory: Chest Non Tender, No Accessory Muscle Use, No Respiratory Distress Cardiovascular: Regular Rate, Rhythm, No JVD Gastrointestinal: non tender, soft, no organomegaly Extremity: Normal Inspection, Non Tender Neurologic/Psychiatric: Alert, Oriented x3 Skin: Normal Color, Warm/Dry Lymphatic: No Adenopathy Assessment/Plan Assessment/Plan Assessment/Plan Hematemesis/hemoptysis Hx of anemia NPO EGD today Not coughing any more blood up, but did have emesis yesterday. Hgb stable. EGd today and if stable could likely be discharged. If continues to have issues would consider bronchoscopy if has coughing up blood. Supervisory-Addendum Brief Verification & Attestation Participated in pt care: history, MDM, physical Personally performed: exam, history, MDM, supervision of care Care discussed with: Medical Student Procedures: n/a Results interpretation: Verified all documentation Verification and Attestation of Medical Student E/M Service A medical student performed and documented this service in my presence. I reviewed and verified all information documented by the medical student and made modifications to such information, when appropriate. I personally performed the physical exam and medical decision making. Ramses Gonsalez, Jun 20, 2021,08:07 BAR WILKINS Jun 20, 2021 07:15 RAMSES GONSALEZ DO Jun 20, 2021 10:28
[2021-06-20] MEDS ORDERED: LACTATED RINGERS 1,000 ML IV STA (08:08)
[2021-06-20] MEDS ORDERED: HURRICAINE EXT TUBE (BENZOCAINE) XX PRN (08:15)
[2021-06-20] MEDS ORDERED: MIDAZOLAM 2 MG/2 ML (VERSED) VIAL ONE (08:27)
[2021-06-20] MEDS ORDERED: proPOfol 200 MG/20 ML (DIPRIVAN) VIAL IV ONE (08:27)
[2021-06-20] MEDS: PANTOPRAZOLE 40 MG (PROTONIX) VIAL IV SCH ×2 (10:14→19:42)
--- NOTE | 2021-06-20 10:29 | Progress Note-Post Operative ---
Post-Operative Progess Note Surgeon (s)/Deposition Operator (s) Surgeon RAMSES MCDOWELL DO Deposition Operator: na Pre-Operative Diagnosis hemetemesis Post-Operative Diagnosis hiatal hernia, gastritis Procedure & Operative Findings Date of Procedure 06/20/21 Procedure Performed/Findings egd c biopsies Anesthesia Type per [facility] Estimated Blood Loss Estimated blood loss (mL): none Specimens/Packing Specimens Removed antrum, ge RAMSES MCDOWELL DO Jun 20, 2021 10:29
--- NOTE | 2021-06-20 11:43 | Pulmonary Progress Note ---
Subjective Date Seen by a Provider: Jun 20, 2021 Time Seen by a Provider: 11:35 Subjective/Events-last exam she denies any nausea or vomiting or hemoptysis since yesterday evening. Had EGD today and found to have hiatal hernia and gastritis. Denies any chest pain, or epigasrtic pain. CTA chest negative for PE or any pulmonary lesions. Review of Systems ROS PER RN Sepsis Event Evaluation Height, Weight, BMI Height: '" Weight: lbs. oz. kg; 27.03 BMI Method: Exam Exam Patient acknowledged, consented, and participated in this virtual visit which was conducted using real time audio/video Vital Signs Date Time Temp Pulse Resp B/P (MAP) Pulse Ox O2 Delivery O2 Flow Rate FiO2 06/20/21 09:30 96 18 98 OxyMask 4 06/20/21 09:25 80 18 100 OxyMask 8 06/20/21 08:00 36.8 85 20 121/77 (92) 100 Room Air 06/20/21 03:44 36.8 64 16 111/66 (81) 98 Room Air 06/20/21 00:09 37.1 70 16 113/56 (75) 98 Room Air 06/19/21 19:46 36.0 73 18 121/70 (87) 98 Room Air 06/19/21 19:35 Room Air 06/19/21 15:52 36.0 86 20 132/70 (90) 99 Room Air 06/19/21 12:19 36.8 64 18 114/70 (85) 97 Room Air I & O 06/20/21 07:00 Intake Total 1750 ml Output Total 50 ml Balance 1700 ml Height & Weight Height: '" Weight: lbs. oz. kg; 27.03 BMI Method: General Appearance: No Apparent Distress, WD/WN HEENT: PERRL/EOMI, Normal ENT Inspection Neck: Normal Inspection, Supple Respiratory: Chest Non Tender, No Accessory Muscle Use, No Respiratory Distress Cardiovascular: Regular Rate, Rhythm, No JVD Peripheral Pulses: 2+ Radial Pulses (R), 2+ Radial Pulses (L) Gastrointestinal: non tender, soft, no organomegaly Extremity: Normal Inspection, Non Tender Neurologic/Psychiatric: Alert, Oriented x3 Skin: Normal Color, Warm/Dry Lymphatic: No Adenopathy Other comments PE PER RN Results Lab Laboratory Tests 06/19/21 05:00 06/19/21 15:00 Assessment/Plan Assessment/Plan 1. SHE PROBABLY HAD HEMATEMESIS DUE TO GASTRITIS. 2. DOUBT ANY TRUE HEMOPTYSIS GIVEN HER CLINICAL SCENARIO AND NORMAL CT CHEST. NO EVIDENCE OF PULMONARY PATHOLOGY. RECOMMENDATIONS 1. AGREE WITH PPI TREATMENT. 2. IF NO FURTHER PROBLEMS SHE MAY BE DISCHARGED TOMORROW AND FOLLOW UP OUT PATIENT.. Critical Care: Critically Ill Patient Time spent with patient (mins): 20 ANDREW PHILLIPS MD Jun 20, 2021 11:43
[2021-06-20] MEDS ORDERED: PANT40TA2 PO (13:11)
--- NOTE | 2021-06-20 13:39 | OPERATIVE REPORT ---
DATE OF SERVICE: 06/20/2021 PREOPERATIVE DIAGNOSIS: Hematemesis. POSTOPERATIVE DIAGNOSES: Small hiatal hernia, gastritis. PROCEDURES PERFORMED: EGD with biopsy. SURGEON: Ramses Gonsalez DO ANESTHESIA: Per MDA. ESTIMATED BLOOD LOSS: None. COMPLICATIONS: None. INDICATIONS FOR PROCEDURE: The patient is a 20-year-old female, who presented with hematemesis, hemoptysis. It feels more hematemesis. The patient understands the risks and benefits of the procedure and wishes to proceed. Consent was signed in the chart. DESCRIPTION OF PROCEDURE: The patient was taken to the endoscopy suite and placed in a left lateral recumbent position. A timeout was performed. Scope was inserted in the mouth, down the esophagus, stomach and into the duodenum without difficulty. No polyps, masses or ulcerations within the duodenum. Scope was slowly retracted back in the stomach, where it was further insufflated. Evidence of some slight gastritis was present in the antrum. No polyps, masses or ulcerations. Biopsy of the antrum was obtained. Scope was retroflexed noting a small hiatal hernia and no other pathology. Scope was returned to its normal position, slowly withdrawn to distal esophagus. Biopsy of the GE junction was obtained. No polyps, masses or ulcerations. Scope was slowly retracted back until completely removed, noting no other pathology. The oropharynx had normal appearance. No evidence of any trauma. The cords were visualized and did not see any evidence of any trauma. Scope was slowly retracted back until completely removed. The patient tolerated the procedure well without any complications. She was taken to the recovery room in stable condition. RECOMMENDATIONS: The patient can advance diet to clear liquids. We would await biopsies for further recommendations. The patient is to follow up in two weeks for biopsy results. Otherwise, continue medical management. Job ID: [id number] DocumentID: [id number] Dictated Date: 06/20/2021 10:31:16 Replanting Machine Crewman Date: 06/20/2021 13:38:42 Dictated By: RAMSES GONSALEZ DO
[2021-06-20] MEDS: ACETAMINOPHEN 325 MG TABLET PO PRN (18:07)
--- NOTE | 2021-06-20 19:50 | Progress Note - Hospitalist ---
Subjective HPI/CC On Admission Date Seen by Provider: Jun 20, 2021 Time Seen by Provider: 10:15 Alana Drake is a 20 year old female with PMH iron deficiency anemia, seasonal allergies, who presented after coughing up blood. She reports this started after eating some pretzels. She thinks they may have irritated her throat. She had three episodes in total. She was not sure if the blood was from her lungs or from her throat. She denies any throat or chest pain. She denies abdominal pain. She has not vomited. She denies any fevers or chills. She denies shortness of br eath. She has no history of tuberculosis. She has no history of incarceration or travel outside the country. She is a student at the [employer]. She does not smoke, drink, or use illicit drugs. Subjective/Events-last exam She has not had any more bleeding since yesterday. She had her scope this morning. She has not yet eaten or drank anything. She is not feeling nauseous. She denies pain. Objective Exam Vital Signs Vital Signs Date Time Temp Pulse Resp B/P (MAP) Pulse Ox O2 Delivery O2 Flow Rate FiO2 06/20/21 19:06 37.2 76 20 113/72 (86) 99 Room Air 06/20/21 09:30 4 06/19/21 02:50 21 Capillary Refill : General Appearance: No Apparent Distress, WD/WN Respiratory: Lungs Clear, No Respiratory Distress Cardiovascular: Regular Rate, Rhythm, No Murmur Gastrointestinal: Normal Bowel Sounds, Soft Extremity: Normal Inspection, No Pedal Edema Neurologic/Psychiatric: Alert, Normal Mood/Affect Skin: Normal Color, Warm/Dry Results/Procedures Lab Patient resulted labs reviewed. Imaging: Reviewed Imaging Report Assessment/Plan Assessment and Plan Assess & Plan/Chief Complaint Hematemesis Gastritis Hgb stable EGD with gastritis Surgery following Pulmonology following Surgery consulted Continue PPI Diagnosis/Problems Diagnosis/Problems (1) Bleeding Status: Acute (2) Hematemesis Status: Acute Qualifiers: Nausea presence: with nausea Qualified Codes: K92.0 - Hematemesis (3) Gastritis Status: Acute BENJI MICHELLE MD Jun 20, 2021 19:50
[2021-06-21 00:15] VITALS: BP 131/65
[2021-06-21 03:38] VITALS: BP 117/59
--- NOTE | 2021-06-21 06:49 | Progress Note - Surgery ---
BAR WILKINS 06/21/21 0649: Subjective Date Seen by a Provider: Jun 21, 2021 Time Seen by a Provider: 06:00 Subjective/Events-last exam Pt tired this morning. Reports coughing in the middle of the night and spitting, but did not check for blood. Likely irritation from EGD. No N/V, and headache saini s improved. She has not had a bm since day before yesterday. Pt ambulated yesterday and is tolerating her CLD well. Denies CP, SOB, and palpitations at this time. Review of Systems General: No Chills; Fatigue HEENT: No Head Aches, No Visual Changes Pulmonary: No Dyspnea; Cough Cardiovascular: No: Chest Pain, Palpitations Gastrointestinal: No: Nausea, Vomiting, Abdominal Pain Genitourinary: No Dysuria, No Frequency Musculoskeletal: foot pain (R ankle); No: neck pain Neurological: No: Weakness, Change in speech Focused Exam Respiratory: Lungs Clear, Normal Breath Sounds, No Respiratory Distress Cardiovascular: Regular Rate, Rhythm, No Murmur, Normal Peripheral Pulses Peripheral Pulses: 2+ Radial Pulses (R), 2+ Radial Pulses (L) Skin: normal color, warm/dry Objective Exam Vital Signs Date Time Temp Pulse Resp B/P (MAP) Pulse Ox O2 Delivery O2 Flow Rate FiO2 06/21/21 03:38 36.5 88 18 117/59 (78) 95 Room Air 06/21/21 00:15 37.1 75 18 131/65 (87) 99 Room Air 06/20/21 20:05 Room Air 06/20/21 19:06 37.2 76 20 113/72 (86) 99 Room Air 06/20/21 16:00 36.2 67 18 119/56 (77) 96 Room Air 06/20/21 12:00 36.8 66 20 121/71 (88) 99 Room Air 06/20/21 09:30 96 18 98 OxyMask 4 06/20/21 09:25 80 18 100 OxyMask 8 06/20/21 08:00 99 Room Air 06/20/21 08:00 36.8 85 20 121/77 (92) 100 Room Air I & O 06/21/21 07:00 Intake Total 2009 ml Balance 2009 ml Capillary Refill : General Appearance: No Apparent Distress, WD/WN Neck: Normal Inspection Respiratory: Lungs Clear, Normal Breath Sounds, No Respiratory Distress Cardiovascular: Regular Rate, Rhythm, No Murmur Peripheral Pulses: 2+ Radial Pulses (R), 2+ Radial Pulses (L) Gastrointestinal: non tender, soft, no organomegaly Extremity: Normal Inspection, No Pedal Edema Neurologic/Psychiatric: Alert, Oriented x3, Normal Mood/Affect Skin: Normal Color, Warm/Dry Assessment/Plan Assessment/Plan Assessment/Plan Hematemesis/hemoptysis Hx of anemia CLD If stable may d/c If still coughing up blood, bronchoscopy may be necessary RAMSES GONSALEZ DO 06/21/21 1718: Subjective Subjective/Events-last exam Feeling okay. No more blood coming up. Tolerating diet. Denies any abdominal pain. Denies fever sweats chills shortness of breath or chest pain. Wanting to go home. Objective Exam General Appearance: No Apparent Distress, WD/WN HEENT: PERRL/EOMI, Normal ENT Inspection Neck: Normal Inspection, Non Tender Respiratory: Chest Non Tender, No Accessory Muscle Use, No Respiratory Distress Cardiovascular: Regular Rate, Rhythm, No JVD Gastrointestinal: non tender, soft, no organomegaly Extremity: Normal Inspection, Non Tender Neurologic/Psychiatric: Alert, Oriented x3, Normal Mood/Affect Skin: Normal Color, Warm/Dry Lymphatic: No Adenopathy Assessment/Plan Assessment/Plan Assessment/Plan Hematemesis/hemoptysis Hx of anemia Hiatal hernia gastritis can advance diet. no more blood coming up keep on protonix okay with dc home w outpatient follow up. If has any further coughing up blood, bronchoscopy may be necessary Supervisory-Addendum Brief Verification & Attestation Participated in pt care: history, MDM, physical Personally performed: exam, history, MDM, supervision of care Care discussed with: Medical Student Procedures: n/a Results interpretation: Verified all documentation Verification and Attestation of Medical Student E/M Service A medical student performed and documented this service in my presence. I reviewed and verified all information documented by the medical student and made modifications to such information, when appropriate. I personally performed the physical exam and medical decision making. Ramses Gonsalez, Jun 21, 2021,17:18 BAR WILKINS Jun 21, 2021 06:49 RAMSES GONSALEZ DO Jun 21, 2021 17:18
[2021-06-21 08:00] VITALS: BP_SYST 116; BP_SYST 128; BP_DIAS 60; BP_DIAS 74
[2021-06-21] MEDS: PANTOPRAZOLE 40 MG (PROTONIX) VIAL IV SCH (09:38)
[2021-06-21 11:53] VITALS: BP 116/74
--- NOTE | 2021-06-21 12:42 | Discharge Summary ---
Discharge Summary Hospital Course Was the Problem List Reviewed?: Yes Problems/Dx: (1) Bleeding Status: Acute (2) Hematemesis Status: Acute Qualifiers: Qualified Codes: K92.0 - Hematemesis (3) Gastritis Status: Acute Qualifiers: Hospital Course Date of Admission: Jun 19, 2021 at 02:11 Admission Diagnosis: Hematemesis Family Physician/Provider: Chaya,Local Physician Date of Discharge: 06/21/21 Discharge Diagnosis: Gastritis with hematemesis Hospital Course: Alana Drake is a 20 year old female who was admitted with hematemesis. She had some irritation after eating some pretezels. Surgery was consulted and she underwent EGD which revealed gastritis. She had no ongoing bleeding at the time of discharge. Her hemoglobin remained stable throughout her stay. She was given a prescription for Protonix. She should follow up with Dr. Gonsalez in a couple weeks. She was discharged home in stable condition. Labs and Pending Lab Test: Microbiology 06/19/21 MRSA Screen - Final, Complete MRSA not isolated Home Meds Active Protonix (Pantoprazole Sodium) 40 Mg Tablet.dr 40 Mg PO DAILY Reported Multivitamin 1 Each Tablet 1 Each PO DAILY Iron (Ferrous Sulfate) 325 Mg Tablet 325 Mg PO DAILY Cetirizine HCl 10 Mg Tablet 10 Mg PO DAILY Assessment/Pt Instructions Take medications as prescribed. Follow up with Dr. Gonsalez. Return with worsening bleeding or if you feel like you are getting worse. Discharge Planning: <30 minutes discharge planning Discharge Instructions Discharge Diet: No Restrictions Activity as Tolerated: Yes Consultations Surgery Discharge Physical Examination Vital Signs Vital Signs Date Time Temp Pulse Resp B/P (MAP) Pulse Ox O2 Delivery O2 Flow Rate FiO2 06/21/21 11:53 36.0 91 20 116/74 98 Room Air 06/20/21 09:30 4 06/19/21 02:50 21 General Appearance: No Apparent Distress, WD/WN Respiratory: Lungs Clear, Normal Breath Sounds, No Respiratory Distress Cardiovascular: Regular Rate, Rhythm, No Edema, No Murmur Gastrointestinal: Normal Bowel Sounds, Non Tender, Soft Extremity: Normal Inspection, Non Tender, No Pedal Edema Skin: Normal Color, Warm/Dry Neurologic/Psychiatric: Alert, Oriented x3, No Motor/Sensory Deficits, Normal Mood/Affect Allergies: Coded Allergies: No Known Drug Allergies (Unverified , 06/18/21) Discharge Summary Date of Admission Jun 19, 2021 at 02:11 Date of Discharge Jun 21, 2021 at 11:58 Discharge Date: Jun 21, 2021 Discharge Time: 11:58 Admission Diagnosis Bleeding Consults/Procedures Consulations Surgery Procedures EGD Discharge Diagnosis Hematemesis Gastritis (1) Bleeding Status: Acute (2) Hematemesis Status: Acute Qualifiers: Qualified Codes: K92.0 - Hematemesis (3) Gastritis Status: Acute Qualifiers: BENJI MICHELLE MD Jun 21, 2021 12:42
--- NOTE | 2021-06-22 10:57 | Anesthesia-General Post-Op ---
MAC Patient Condition Mental Status/LOC: Same as Preop Cardiovascular: Satisfactory Nausea/Vomiting: Absent Respiratory: Satisfactory Pain: Controlled Complications: Absent Post Op Complications Complications None Follow Up Care/Instructions Patient Instructions None needed. Anesthesiology Discharge Order Discharge Order Post-dated progress note: Patient was doing well after the procedure and seen on 06-20-21 at approximately 0930 without complaints, stable vital signs, no apparent adverse anesthesia problems. KARLY GOMEZ DO Jun 22, 2021 10:57
== END 2021-06-21 11:58 | disposition home or self-care (01) ==
LOC: EDUNIT# 00:19 → ER 00:23 → 4TH 02:11
PROVIDERS: ADMIT Internal Medicine; ATTEND Internal Medicine
DX: K29.51 Unspecified chronic gastritis with bleeding (principal); K92.0 Hematemesis; K44.9 Diaphragmatic hernia without obstruction or gangrene; K22.89 Other specified disease of esophagus; I49.9 Cardiac arrhythmia, unspecified; Z79.899 Other long term (current) drug therapy
CPT/HCPCS: 43239; 71275; 84703 ×2; 85025; 87081; 87636; 88305; 93005; 94760; 96374; 99284; G0378; 36415; 87635